=== PATIENT | male | born 1990 | race African-American/Black ===

== ENCOUNTER 2018-03-02 06:46 | Emergency (ER) | payer SELFPAY ==
[~2018-03-02] VITALS: Ht 167.6 cm; Wt 72.2 kg
[2018-03-02] MEDS ORDERED: DEXAMETHASONE 4 MG TABLET ONE (07:25)
[2018-03-02] MEDS ORDERED: maalox/diphenh/lido/sucralfate 5 ML PO ONE (07:30)
[2018-03-02] MEDS ORDERED: DEXAMETHASONE 4 MG TABLET PO ONE (07:30)
[2018-03-02] MEDS ORDERED: HYDROcodone/APAP 7.5-325MG/15ML UDC PO PRN (07:30)
[2018-03-02] MEDS ORDERED: ONDANSETRON ODT 4 MG ONE (07:46)
[2018-03-02] MEDS ORDERED: DEXAMETHASONE 4 MG/ML, 1ML ONE (07:46)
[2018-03-02 07:51] VITALS: BP 124/82
[2018-03-02] MEDS ORDERED: DEXAMETHASONE 4 MG/ML, 1ML IM ONE (08:00)
[2018-03-02] MEDS ORDERED: ONDANSETRON ODT 4 MG PO ONE (08:00)
== END 2018-03-02 08:14 | disposition home or self-care (01) ==
LOC: ED 08:13
DX: J03.00 Acute streptococcal tonsillitis, unspecified (principal); M25.511 Pain in right shoulder
CPT/HCPCS: 73030; 96372; 99284; J1100; Q0162